=== PATIENT | female | born 1935 | race Caucasian/White ===

== ENCOUNTER 2018-09-07 03:50 | Inpatient (IN) | payer MEDICARE, OTHER ==
[2018-09-07 04:21] LABS: ADD MAN DIFF? NO
[2018-09-07 04:22] LABS: BASOPHIL # 0.1 10^3/ul (0.0-0.1); BASOPHILS % 1.1 % (0.0-2.0); EOSINOPHILS # 0.3 10^3/ul (0.0-0.5); EOSINOPHILS % 3.5 % (0.0-7.0); HEMATOCRIT 35.1 % (37.0-47.0); HEMOGLOBIN 10.8 g/dl (12.0-16.0); LYMPHOCYTES # 2.1 10^3/ul (0.8-2.9); LYMPHOCYTES % 29.5 % (15.0-51.0); MEAN CORPUSCULAR HEMOGLOBIN 20.7 pg (29.0-33.0); MEAN CORPUSCULAR HGB CONC 30.8 g/dl (32.0-37.0); MEAN CORPUSCULAR VOLUME 67.1 fl (82.0-101.0); MEAN PLATELET VOLUME 9.2 fl (7.4-10.4); MONOCYTE # 0.6 10^3/ul (0.3-0.9); MONOCYTES % 8.4 % (0.0-11.0); NEUTROPHIL # 4.1 10^3/ul (1.6-7.5); NEUTROPHILS % 57.1 % (39.0-77.0); PLATELET COUNT 333 10^3/UL (140-415); RED BLOOD COUNT 5.23 10^6/ul (4.20-5.40); RED CELL DISTRIBUTION WIDTH 15.4 % (11.5-14.5)
[2018-09-07 04:22] LABS: WHITE BLOOD COUNT 7.1 10^3/ul (4.8-10.8)
[2018-09-07 04:39] LABS: ANION GAP 10 (5-13); BLOOD UREA NITROGEN 16 mg/dl (7-20); CALCIUM 9.4 mg/dl (8.4-10.2); CARBON DIOXIDE 25 mmol/L (21-31); CHLORIDE 107 mmol/L (97-110); CHOL/HDL RATIO 2.9 RATIO; CHOLESTEROL 158 mg/dl (100-200); CREATINE KINASE 33 IU/L (23-200); CREATININE 0.74 mg/dl (0.44-1.00); GLUCOSE 169 mg/dl (70-220); HDL CHOLESTEROL 53 mg/dl (33-92); LDL CHOLESTEROL,CALCULATED 73 mg/dl; POTASSIUM 4.5 mmol/L (3.5-5.1); SODIUM 142 mmol/L (135-144); TRIGLYCERIDES 158 mg/dl (0-149)
[2018-09-07 04:40] LABS: ETHANOL < 10.0 mg/dl (0-0)
[2018-09-07 04:41] LABS: INR 0.87; PROTIME 11.9 Sec (11.9-14.9); PT RATIO 0.9
[2018-09-07 04:42] LABS: PARTIAL THROMBOPLASTIN TIME 28.3 Sec (23.0-35.0)
[2018-09-07 04:48] LABS: HEMOGLOBIN A1C 6.8 % (0-5.9)
[2018-09-07 04:51] LABS: CK INDEX 0.8; CK-MB 0.28 ng/ml (0.0-2.4); TROPONIN-I < 0.012 ng/ml (0.000-0.120)
[2018-09-07] MEDS ORDERED: ACETAMINOPHEN 325 MG TAB PO (06:00)
[2018-09-07] MEDS ORDERED: ONDANSETRON 4 MG INJ IV (06:00)
[2018-09-07] MEDS: SOD CHLORIDE 0.9% 100 ML (08:00)
[2018-09-07] MEDS: IOHEXOL 100 ML (08:00)
[2018-09-07] MEDS ORDERED: GLUCOSE GEL 15 GRAM TUBE PO ×2 (12:00)
[2018-09-07] MEDS ORDERED: DEXTROSE 50% 50 ML SYRINGE IV ×2 (12:00)
[2018-09-07] MEDS ORDERED: GLUCOSE GEL 15 GRAM TUBE BUCCAL (12:00)
[2018-09-07] MEDS ORDERED: GLUCAGON 1 MG INJ IM (12:00)
[2018-09-07] MEDS: INSULIN ASPART [NOVOLOG] 3 ML PEN SC ×3 (12:35→20:55)
[2018-09-07] MEDS: LEVETIRACETAM 750 MG TAB PO (16:26)
[2018-09-07] MEDS: SENNA TAB PO (20:51)
[2018-09-07] MEDS: ATENOLOL 50 MG TAB PO (20:52)
[2018-09-07] MEDS: AMLODIPINE 5 MG TAB PO (20:52)
[2018-09-07] MEDS: ATORVASTATIN 10 MG TAB PO (20:52)
[2018-09-07] MEDS: DOCUSATE SODIUM 100 MG CAP PO (20:53)
[2018-09-07] MEDS ORDERED: LEVETIRACETAM 500 MG TAB PO (21:00)
[2018-09-07] MEDS ORDERED: LEVETIRACETAM 750 MG TAB PO (21:00)
[2018-09-08] MEDS: LEVETIRACETAM 750 MG TAB PO ×3 (01:53→20:29)
[2018-09-08 06:48] LABS: ADD MAN DIFF? NO
[2018-09-08 06:52] LABS: BASOPHIL # 0.1 10^3/ul (0.0-0.1); BASOPHILS % 0.8 % (0.0-2.0); EOSINOPHILS # 0.1 10^3/ul (0.0-0.5); EOSINOPHILS % 2.2 % (0.0-7.0); HEMATOCRIT 34.9 % (37.0-47.0); HEMOGLOBIN 10.6 g/dl (12.0-16.0); LYMPHOCYTES # 1.9 10^3/ul (0.8-2.9); LYMPHOCYTES % 30.4 % (15.0-51.0); MEAN CORPUSCULAR HEMOGLOBIN 20.3 pg (29.0-33.0); MEAN CORPUSCULAR HGB CONC 30.4 g/dl (32.0-37.0); MEAN CORPUSCULAR VOLUME 66.9 fl (82.0-101.0); MEAN PLATELET VOLUME 9.7 fl (7.4-10.4); MONOCYTE # 0.5 10^3/ul (0.3-0.9); MONOCYTES % 8.4 % (0.0-11.0); NEUTROPHIL # 3.6 10^3/ul (1.6-7.5); NEUTROPHILS % 57.7 % (39.0-77.0); PLATELET COUNT 333 10^3/UL (140-415); RED BLOOD COUNT 5.22 10^6/ul (4.20-5.40); RED CELL DISTRIBUTION WIDTH 15.7 % (11.5-14.5)
[2018-09-08 06:52] LABS: WHITE BLOOD COUNT 6.3 10^3/ul (4.8-10.8)
[2018-09-08 07:15] LABS: ANION GAP 11 (5-13); BLOOD UREA NITROGEN 13 mg/dl (7-20); CALCIUM 8.4 mg/dl (8.4-10.2); CARBON DIOXIDE 26 mmol/L (21-31); CHLORIDE 102 mmol/L (97-110); CREATININE 0.68 mg/dl (0.44-1.00); GLUCOSE 140 mg/dl (70-220); SODIUM 139 mmol/L (135-144)
[2018-09-08] MEDS: INSULIN ASPART [NOVOLOG] 3 ML PEN SC ×4 (08:34→20:26)
[2018-09-08] MEDS: DOCUSATE SODIUM 100 MG CAP PO ×2 (08:46→20:28)
[2018-09-08] MEDS: ASPIRIN 81 MG TAB PO (08:46)
[2018-09-08] MEDS: ATENOLOL 50 MG TAB PO ×2 (08:47→20:28)
[2018-09-08] MEDS: AMLODIPINE 5 MG TAB PO ×2 (08:47→20:28)
[2018-09-08] MEDS: MULTIVITAMINS THERAPEUTIC TAB PO (08:47)
[2018-09-08] MEDS: LOSARTAN 50 MG TAB PO (08:47)
[2018-09-08] MEDS: glipiZIDE 5 MG TAB PO (08:51)
[2018-09-08 11:17] LABS: INR 0.94; PROTIME 12.7 Sec (11.9-14.9)
[2018-09-08] MEDS: ATORVASTATIN 10 MG TAB PO (20:27)
[2018-09-08] MEDS: SENNA TAB PO (20:29)
[2018-09-09] MEDS: LEVETIRACETAM 750 MG TAB PO ×2 (08:12→20:53)
[2018-09-09] MEDS: DOCUSATE SODIUM 100 MG CAP PO ×2 (08:12→20:53)
[2018-09-09] MEDS: glipiZIDE 5 MG TAB PO (08:12)
[2018-09-09] MEDS: AMLODIPINE 5 MG TAB PO ×2 (08:12→20:55)
[2018-09-09] MEDS: MULTIVITAMINS THERAPEUTIC TAB PO (08:12)
[2018-09-09] MEDS: LOSARTAN 50 MG TAB PO (08:13)
[2018-09-09] MEDS: ASPIRIN 81 MG TAB PO (08:13)
[2018-09-09] MEDS: ATENOLOL 50 MG TAB PO ×2 (08:14→20:55)
[2018-09-09] MEDS: INSULIN ASPART [NOVOLOG] 3 ML PEN SC ×4 (08:14→20:57)
[2018-09-09] MEDS: PHENYTOIN 1,250 MG in SOD CHLORIDE 0.9% 150 ML IV (12:00)
[2018-09-09 15:25] LABS: PHENYTOIN (DILANTIN) 18.5 ug/ml (10.0-20.0)
[2018-09-09] MEDS: ATORVASTATIN 10 MG TAB PO (20:53)
[2018-09-09] MEDS: SENNA TAB PO (20:54)
[2018-09-09] MEDS: PHENYTOIN 100 MG CAP PO (20:54)
[2018-09-09] MEDS: ZOLPIDEM 5 MG TAB PO (21:47)
[2018-09-09 23:16] LABS: ADD UMIC NO; UR ASCORBIC ACID NEGATIVE (NEGATIVE); UR BILIRUBIN (Dip) NEGATIVE (NEGATIVE); UR BLOOD (Dip) NEGATIVE (NEGATIVE); UR CLARITY CLEAR (CLEAR); UR COLOR STRAW (YELLOW); UR GLUCOSE (Dip) NEGATIVE (NEGATIVE); UR KETONES (Dip) NEGATIVE (NEGATIVE); UR LEUKOCYTE ESTERASE (Dip) NEGATIVE Leu/ul (NEGATIVE); UR NITRITE (Dip) NEGATIVE (NEGATIVE); UR SPECIFIC GRAVITY (Dip) 1.005 (1.003-1.030); UR TOTAL PROTEIN (Dip) NEGATIVE (NEGATIVE); UR UROBILINOGEN (Dip) NEGATIVE (NEGATIVE)
[2018-09-09 23:30] LABS: AMPHETAMINE/METHAMPHETAMINE Negative (NEGATIVE); BARBITURATES Negative (NEGATIVE); BENZODIAZEPINES Negative (NEGATIVE); CANNABINOIDS Negative (NEGATIVE); COCAINE Negative (NEGATIVE); OPIATES Negative (NEGATIVE)
[2018-09-10 06:14] LABS: ADD MAN DIFF? NO
[2018-09-10 06:20] LABS: BASOPHIL # 0.1 10^3/ul (0.0-0.1); BASOPHILS % 0.8 % (0.0-2.0); EOSINOPHILS # 0.3 10^3/ul (0.0-0.5); EOSINOPHILS % 3.3 % (0.0-7.0); HEMATOCRIT 33.4 % (37.0-47.0); HEMOGLOBIN 10.1 g/dl (12.0-16.0); LYMPHOCYTES # 1.2 10^3/ul (0.8-2.9); LYMPHOCYTES % 15.3 % (15.0-51.0); MEAN CORPUSCULAR HEMOGLOBIN 20.4 pg (29.0-33.0); MEAN CORPUSCULAR HGB CONC 30.2 g/dl (32.0-37.0); MEAN CORPUSCULAR VOLUME 67.5 fl (82.0-101.0); MEAN PLATELET VOLUME 9.7 fl (7.4-10.4); MONOCYTE # 0.6 10^3/ul (0.3-0.9); MONOCYTES % 8.3 % (0.0-11.0); NEUTROPHIL # 5.5 10^3/ul (1.6-7.5); PLATELET COUNT 289 10^3/UL (140-415); RED BLOOD COUNT 4.95 10^6/ul (4.20-5.40); RED CELL DISTRIBUTION WIDTH 15.4 % (11.5-14.5)
[2018-09-10 06:20] LABS: WHITE BLOOD COUNT 7.6 10^3/ul (4.8-10.8)
[2018-09-10 06:53] LABS: ANION GAP 11 (5-13); BLOOD UREA NITROGEN 18 mg/dl (7-20); CALCIUM 8.6 mg/dl (8.4-10.2); CARBON DIOXIDE 24 mmol/L (21-31); CHLORIDE 106 mmol/L (97-110); CREATININE 0.71 mg/dl (0.44-1.00); GLUCOSE 223 mg/dl (70-220); POTASSIUM 3.9 mmol/L (3.5-5.1); SODIUM 141 mmol/L (135-144)
[2018-09-10] MEDS: glipiZIDE 5 MG TAB PO (08:22)
[2018-09-10] MEDS: INSULIN ASPART [NOVOLOG] 3 ML PEN SC ×4 (08:28→21:26)
[2018-09-10] MEDS: LEVETIRACETAM 750 MG TAB PO ×2 (08:35→21:19)
[2018-09-10] MEDS: ATENOLOL 50 MG TAB PO ×2 (08:36→21:20)
[2018-09-10] MEDS: LOSARTAN 50 MG TAB PO (08:36)
[2018-09-10] MEDS: PHENYTOIN 100 MG CAP PO ×3 (08:37→21:19)
[2018-09-10] MEDS: MULTIVITAMINS THERAPEUTIC TAB PO (08:37)
[2018-09-10] MEDS: ASPIRIN 81 MG TAB PO (08:37)
[2018-09-10] MEDS: AMLODIPINE 5 MG TAB PO ×2 (08:37→21:19)
[2018-09-10] MEDS: DOCUSATE SODIUM 100 MG CAP PO ×2 (08:37→21:18)
[2018-09-10 12:52] LABS: PHENYTOIN (DILANTIN) 8.3 ug/ml (10.0-20.0)
[2018-09-10] MEDS: SENNA TAB PO (21:18)
[2018-09-10] MEDS: ATORVASTATIN 10 MG TAB PO (21:19)
[2018-09-11 06:51] LABS: ADD MAN DIFF? NO
[2018-09-11 06:56] LABS: BASOPHIL # 0.1 10^3/ul (0.0-0.1); BASOPHILS % 0.9 % (0.0-2.0); EOSINOPHILS # 0.3 10^3/ul (0.0-0.5); EOSINOPHILS % 4.7 % (0.0-7.0); HEMATOCRIT 32.6 % (37.0-47.0); HEMOGLOBIN 9.8 g/dl (12.0-16.0); LYMPHOCYTES # 1.2 10^3/ul (0.8-2.9); LYMPHOCYTES % 23.1 % (15.0-51.0); MEAN CORPUSCULAR HEMOGLOBIN 20.3 pg (29.0-33.0); MEAN CORPUSCULAR HGB CONC 30.1 g/dl (32.0-37.0); MEAN CORPUSCULAR VOLUME 67.6 fl (82.0-101.0); MEAN PLATELET VOLUME 9.6 fl (7.4-10.4); MONOCYTE # 0.5 10^3/ul (0.3-0.9); MONOCYTES % 9.3 % (0.0-11.0); NEUTROPHIL # 3.2 10^3/ul (1.6-7.5); NEUTROPHILS % 61.6 % (39.0-77.0); PLATELET COUNT 286 10^3/UL (140-415); RED BLOOD COUNT 4.82 10^6/ul (4.20-5.40); RED CELL DISTRIBUTION WIDTH 15.2 % (11.5-14.5)
[2018-09-11 06:56] LABS: WHITE BLOOD COUNT 5.3 10^3/ul (4.8-10.8)
[2018-09-11 07:18] LABS: ANION GAP 8 (5-13); BLOOD UREA NITROGEN 15 mg/dl (7-20); CALCIUM 8.8 mg/dl (8.4-10.2); CARBON DIOXIDE 27 mmol/L (21-31); CHLORIDE 107 mmol/L (97-110); CREATININE 0.67 mg/dl (0.44-1.00); GLUCOSE 161 mg/dl (70-220); POTASSIUM 3.8 mmol/L (3.5-5.1); SODIUM 142 mmol/L (135-144)
[2018-09-11 07:54] LABS: PHENYTOIN (DILANTIN) 13.4 ug/ml (10.0-20.0)
[2018-09-11] MEDS: glipiZIDE 5 MG TAB PO (08:02)
[2018-09-11] MEDS: MULTIVITAMINS THERAPEUTIC TAB PO (08:29)
[2018-09-11] MEDS: LEVETIRACETAM 750 MG TAB PO (08:30)
[2018-09-11] MEDS: AMLODIPINE 5 MG TAB PO (08:30)
[2018-09-11] MEDS: LOSARTAN 50 MG TAB PO (08:30)
[2018-09-11] MEDS: DOCUSATE SODIUM 100 MG CAP PO (08:30)
[2018-09-11] MEDS: ASPIRIN 81 MG TAB PO (08:31)
[2018-09-11] MEDS: ATENOLOL 50 MG TAB PO (08:31)
[2018-09-11] MEDS: PHENYTOIN 100 MG CAP PO ×2 (08:31→14:14)
[2018-09-11] MEDS: INSULIN ASPART [NOVOLOG] 3 ML PEN SC ×2 (08:35→12:18)
[2018-09-11] MEDS ORDERED: ATENOLOL 25 MG TAB PO (21:00)
== END 2018-09-11 17:00 | DRG 101 ==
LOC: E/R 03:50 → TEL 05:33
DX: G40.909 Epilepsy, unspecified, not intractable, without status epilepticus (principal); R47.01 Aphasia; G83.84 Todd's paralysis (postepileptic); I10 Essential (primary) hypertension; D56.9 Thalassemia, unspecified; E78.5 Hyperlipidemia, unspecified; E11.9 Type 2 diabetes mellitus without complications; H91.90 Unspecified hearing loss, unspecified ear; R00.1 Bradycardia, unspecified; Z79.84 Long term (current) use of oral hypoglycemic drugs; Z88.0 Allergy status to penicillin; Z86.73 Personal history of transient ischemic attack (TIA), and cerebral infarction without residual deficits; Z79.82 Long term (current) use of aspirin
CPT/HCPCS: 70450; 70496; 70498; 70551; 71045; 80048; 80061; 80185; 80307; 81003; 82550; 82553; 82962; 83036; 84484; 85025; 85610; 85730; 92610; 93005; 97116; 97161; 97167; 97530; 99285-25; G0378